=== PATIENT | female | born 2000 | race Caucasian/White ===

== ENCOUNTER 2022-08-27 11:41 | Emergency (ER) | payer OTHER, SELFPAY ==
[2022-08-27 11:42] VITALS: BP 108/45; PULSE 111; RESP 14; TEMP 36.3; O2SAT 96; BMI 22.0
--- NOTE | 2022-08-27 12:02 | EDS_ITS ---
HPI History of Present Illness Chief Complaint: Rash Narrative Narrative: 22-year-old female who denies significant past medical history, currently a student at the [employer], presents with itchy rash over the last 5 days. She states that it may have started on her arms, and she thinks they are hives which will convalesce, then disappear, and will reappear on different parts of her body. She states that she has had facial redness and swelling which has lessened. It is on her right shoulder currently and on her feet, they were on her legs previously and on her arms. She states she did a telehealth visit and was prescribed Atarax for the itching. She presents because yesterday she felt short of breath with the symptomatology in her throat. That has improved considerably. She presents because of the continued itchy, pruritic rash. She denies any changes in laundry detergent, lotions, soaps, or any other contact dermatitis. PFSH PFSH Medical History no medical history Home Medications famotidine 20 mg tablet (Pepcid) 20 mg PO DAILY #10 tabs 08/27/22 [Rx Last Taken Unknown] prednisone 20 mg tablet 40 mg PO DAILY #14 tabs 08/27/22 [Rx Last Taken Unknown] Allergy/AdvReac Type Severity Reaction Status Date / Time Penicillins [PCN] Allergy Rash Verified 08/27/22 11:42 Surgical History no surgical history Social History Smoking Status: Never smoker ROS ROS ED ROS Narrative Constitutional: No fever, no chills. HEENT: No sore throat. No neck pain. No loss of vision. No rhinorrhea. Cardiovascular: No chest pain. No palpitations. No pedal edema. Respiratory: No cough, no shortness of breath. Abdominal: No abdominal pain. No nausea. No vomiting. Genitourinary: No dysuria. No hematuria. Musculoskeletal: No myalgias. No arthralgias. Neurologic: No headaches. No dizziness. No lightheadedness. Skin: Positive pruritic, itchy, convalescent rash. No change in color. Psychiatric: No depression. No anxiety. EXAM Physical Exam Narrative Exam Narrative: Afebrile. Vital signs noted. Nontoxic-appearing. HEENT: Normocephalic. Atraumatic. PERRL, EOMI. Neck soft and supple. No point tenderness or step off. No stridor. Airway patent. No drooling or trismus. Cardiovascular: Regular rate and rhythm with intermittent tachycardia. No murmurs, rubs, or gallops appreciated. Respiratory: No tachypnea. Lungs clear to auscultation bilaterally. Gastrointestinal: Abdomen soft, nontender, with normoactive bowel sounds. No rebound or guarding. Neurological: Awake. Alert. Nonfocal, nonlateralizing. Skin: Positive urticarial appearing rash, with areas of convalescence and confluent. Located mainly on right shoulder, ankles, dorsum of hands, and facial normal color. No pallor. Musculoskeletal: No pedal edema. Full range of motion extremities. Const Vital Signs: 08/27/22 11:42 Temperature 97.3 F L Temperature Source Temporal Pulse Rate 111 H Respiratory Rate 14 Blood Pressure 108/45 L Blood Pressure Mean 66 Pulse Ox 96 Oxygen Delivery Method Room Air MDM MDM MDM Narrative Medical decision making narrative: While I am unsure as to what the cause of this rash is, they will be treated as urticaria. Her pulse ox is 96% on room air. I do not feel that epinephrine is indicated. She will continue her Atarax. I we will give her a loading dose of prednisone 60 mg orally here in the emergency department and write her a prescription for a burst for the next 7 days of 40 mg. Additionally, she was prescribed 10 tablets of Pepcid as a histamine 2 janny. I feel she be discharged safely home with follow-up to allergy/immunology for further testing. She may have idiopathic hives. Return instructions to the emergency department were reviewed. Disposition is discharged home in stable condition. Discharge Plan Triage Chief Complaint: Rash ED Provider: Salazar Cortez Dx/Rx/DC Orders Clinical Impression: Hives Instructions: ED Hives (Adult) Prescriptions: New prednisone 20 mg tablet 40 mg PO DAILY Qty: 14 0RF famotidine [Pepcid] 20 mg tablet 20 mg PO DAILY Qty: 10 0RF Primary Care Provider: [facility] Doctor,Out of Referrals: Anum Borrero MD [Non-Staff] - [facility] Doctor,Out of [Primary Care Provider] - Activity Restrictions/Additional Instructions: Finish your Atarax as needed for itching. Add the prednisone burst for the next week. You may also take Pepcid which was prescribed for you. Follow-up with Dr. Anthony Mckeon with allergy/immunology. He is in the same building as Dr. Anum Borrero. Disposition Disposition: Home, Self Care
[2022-08-27] MEDS: predniSONE 20 MG Tablet 60 MG PO (12:12)
== END 2022-08-27 12:31 | disposition home or self-care (01) ==
LOC: ED 12:12
PROVIDERS: Emergency Provider Emergency Medicine; PCP Pediatrics; Visit Provider Emergency Medicine
DX: L50.9 Urticaria, unspecified (principal)
CPT/HCPCS: 99283